=== PATIENT | male | born 1935 | race Caucasian/White ===

== ENCOUNTER 2016-08-26 08:30 | Observation (INO) | payer BC ==
[2016-06-19 09:03] VITALS: BMI 27.0
--- NOTE | 2016-06-19 09:43 | PAT Medication Instructions ---
Service Date June 19, 2016. Current Home Medication List Ascorbic Acid (Vitamin C), 1 T PO QAM Aspirin (Aspirin), 1 T PO HS Atorvastatin (Lipitor), 40 MG PO QAM Carvedilol (Coreg), 3.125 MG PO BID Cholecalciferol (Vitamin D3), 1 T PO QAM Clopidogrel (Plavix), 75 MG PO QAM Diltiazem Hcl Coated Beads (Cardizem Cd), 1 CAP PO QAM Finasteride (Proscar), 5 MG PO QAM Hydrochlorothiazide (Hctz), 25 MG PO QAM Insulin Human Lispro (Insulin Humalog Pump ), 1 EA N/A UD Lisinopril (Zestril), 40 MG PO QAM Nitroglycerin (Nitrostat), 0.4 MG UT PRN Ocuvite Preservision (Ocuvite Preservision), 1 TAB PO BID [place]-3 Fatty Acids ([place] 3), 1 CAP PO BID Pantoprazole (Protonix), 40 MG PO QPM Tamsulosin HCl (Tamsulosin HCl), 1 CAP PO QAM Medication Instructions For Your Scheduled Surgery Insulin Human Lispro (Insulin Humalog Pump ), 1 EA N/A UD (set insulin pump at basal rate after midnight prior to surgery. Do not bolus) Nitroglycerin (Nitrostat), 0.4 MG UT PRN (if needed) - Hold the following medications starting today 06/19/16: [place]-3 Fatty Acids ([place] 3), 1 CAP PO BID - Hold the following medications the morning of surgery: Ocuvite Preservision (Ocuvite Preservision), 1 TAB PO BID Lisinopril (Zestril), 40 MG PO QAM Hydrochlorothiazide (Hctz), 25 MG PO QAM Cholecalciferol (Vitamin D3), 1 T PO QAM Ascorbic Acid (Vitamin C), 1 T PO QAM - Take the following medications the morning of surgery with a sip of water: Tamsulosin HCl (Tamsulosin HCl), 1 CAP PO QAM Diltiazem Hcl Coated Beads (Cardizem Cd), 1 CAP PO QAM Finasteride (Proscar), 5 MG PO QAM Clopidogrel (Plavix), 75 MG PO QAM (per cardio and surgeon instructions) Carvedilol (Coreg), 3.125 MG PO BID Atorvastatin (Lipitor), 40 MG PO QAM - Take the following medications as scheduled the night before surgery: Pantoprazole (Protonix), 40 MG PO QPM Ocuvite Preservision (Ocuvite Preservision), 1 TAB PO BID Carvedilol (Coreg), 3.125 MG PO BID Aspirin (Aspirin), 1 T PO HS (per cardio and surgeon instructions) If you have any questions please call us at [phone] or [phone] ( [place]) or [phone]
[2016-06-19 10:19] LABS: BASO % 0.8 %; BASO ABS # 0.05 K/uL (0-0.2); COMPLETE YES; EOS % 4.5 %; HEMATOCRIT 39.1 % (42-52); IG% 0.2 %; LYMPH % 17.1 %; LYMPH ABS # 1.07 K/uL (1.2-3.4); MEAN CELL VOLUME 87.1 fL (80-100); MEAN CORPUSCULAR HEMOGLOBIN 27.8 pg (25-34); MEAN PLATELET VOLUME 9.7 fL (7.4-10.4); NEUT % 69.4 %; PLATELET COUNT 272 K/uL (130-400); RED BLOOD COUNT 4.49 M/uL (4.7-6.1); WHITE BLOOD COUNT 6.24 K/uL (4.8-10.8)
[2016-06-19 10:23] LABS: MANUAL MICROSCOPIC REQUIRED? NO; REVIEW REQ? NO; URINE APPEARANCE CLEAR (CLEAR); URINE BILIRUBIN NEG (NEG); URINE COLOR YELLOW; URINE NITRITE NEG (NEG); UROBILINOGEN NEG (NEG)
--- NOTE | 2016-06-19 10:30 | DIAGNOSTIC IMAGING REPORT ---
CHEST PREADMISSION(PA/LAT) HISTORY: Preop. COMPARISON: Chest 11/01/2012. FINDINGS: No pleural effusions. No pneumothorax. The heart is borderline enlarged. This remains unchanged. Moderate to large hiatus hernia remain stable. Left subclavian Port-A-Cath terminates in the distal SVC. No new focal lung consolidations to suggest pneumonia. No evidence for pulmonary edema. Lumbar spinal posterior fusion is noted. IMPRESSION: No change. No acute process within the chest. Hiatal hernia. Electronically signed by: Maco Travis M.D. 06/19/2016 10:29 AM Dictated Date/Time: 06/19/2016 10:27 AM
[2016-06-19 10:34] LABS: BUN/CREATININE RATIO 19.1 (10-20); CREATININE 0.85 mg/dl (0.60-1.40)
[2016-06-19 10:35] LABS: CALCIUM 8.9 mg/dl (8.5-10.1); POTASSIUM 4.3 mmol/L (3.5-5.1)
[2016-08-11 13:22] VITALS: BMI 28.0
--- NOTE | 2016-08-11 13:56 | PAT Medication Instructions ---
Service Date Aug 11, 2016. Current Home Medication List Ascorbic Acid (Vitamin C), 1 T PO QAM Ascorbic Acid (Vitamin C), 1 TAB PO QAM Aspirin (Aspirin), 1 T PO HS Atorvastatin (Lipitor), 40 MG PO QPM Carvedilol (Coreg), 3.125 MG PO BID Cholecalciferol (Vitamin D3), 1 T PO QAM Cholecalciferol (Vitamin D3), 1 TAB PO QAM Clopidogrel (Plavix), 75 MG PO QAM Diltiazem Hcl Coated Beads (Cardizem Cd), 1 CAP PO QAM Finasteride (Proscar), 5 MG PO QAM Fish Oil ([place]-3), 1 CAP PO QAM Hydrochlorothiazide (Hctz), 25 MG PO QAM Insulin Human Lispro (Insulin Humalog Pump ), 1 EA N/A UD Lisinopril (Zestril), 40 MG PO QAM Nitroglycerin (Nitrostat), 0.4 MG UT PRN Ocuvite Preservision (Ocuvite Preservision), 1 TAB PO BID Pantoprazole (Protonix), 40 MG PO QAM Tamsulosin HCl (Tamsulosin HCl), 1 CAP PO QPM Medication Instructions For Your Scheduled Surgery - Check with surgeon/vp of technology for instructions: Clopidogrel (Plavix), 75 MG PO QAM Aspirin (Aspirin), 1 T PO HS Hold the following medications 2 weeks prior to surgery: Fish Oil ([place]-3), 1 CAP PO QAM - Hold the following medications the morning of surgery: Ascorbic Acid (Vitamin C), 1 T PO QAM Ascorbic Acid (Vitamin C), 1 TAB PO QAM Ocuvite Preservision (Ocuvite Preservision), 1 TAB PO BID Lisinopril (Zestril), 40 MG PO QAM Hydrochlorothiazide (Hctz), 25 MG PO QAM Finasteride (Proscar), 5 MG PO QAM Cholecalciferol (Vitamin D3), 1 T PO QAM Cholecalciferol (Vitamin D3), 1 TAB PO QAM - Take the following medications the morning of surgery with a sip of water: Pantoprazole (Protonix), 40 MG PO QAM Nitroglycerin (Nitrostat), 0.4 MG UT PRN Diltiazem Hcl Coated Beads (Cardizem Cd), 1 CAP PO QAM Carvedilol (Coreg), 3.125 MG PO BID - Take the following medications as scheduled the night before surgery: Tamsulosin HCl (Tamsulosin HCl), 1 CAP PO QPM Ocuvite Preservision (Ocuvite Preservision), 1 TAB PO BID Nitroglycerin (Nitrostat), 0.4 MG UT PRN Carvedilol (Coreg), 3.125 MG PO BID Atorvastatin (Lipitor), 40 MG PO QPM - For Insulin Dependent Diabetic patients: Test blood sugar A.M. of surgery. - Continue basal setting of Insulin Human Lispro If you have any questions please call us at [phone] or [phone] or [phone]
[2016-08-11 14:33] LABS: BASO % 1.3 %; BASO ABS # 0.08 K/uL (0-0.2); COMPLETE YES; EOS % 9.3 %; HEMATOCRIT 38.9 % (42-52); IG% 0.2 %; LYMPH % 20.8 %; LYMPH ABS # 1.28 K/uL (1.2-3.4); MEAN CORPUSCULAR HEMOGLOBIN 29.2 pg (25-34); MEAN CORPUSCULAR HGB CONC 33.2 g/dl (32-36); MEAN PLATELET VOLUME 9.8 fL (7.4-10.4); NEUT % 56.4 %; PLATELET COUNT 312 K/uL (130-400); RED BLOOD COUNT 4.42 M/uL (4.7-6.1); WHITE BLOOD COUNT 6.15 K/uL (4.8-10.8)
[2016-08-11 14:41] LABS: URINE APPEARANCE CLEAR (CLEAR); URINE BILIRUBIN NEG (NEG); URINE COLOR YELLOW; URINE NITRITE NEG (NEG); URINE PH 7.5 (4.5-7.5); URINE SPECIFIC GRAVITY 1.015 (1.000-1.030); UROBILINOGEN NEG (NEG)
[2016-08-11 14:43] LABS: MANUAL MICROSCOPIC REQUIRED? NO; REVIEW REQ? NO
[2016-08-11 14:47] LABS: BUN/CREATININE RATIO 19.9 (10-20); CALCIUM 8.7 mg/dl (8.5-10.1); CREATININE 0.71 mg/dl (0.60-1.40); POTASSIUM 3.5 mmol/L (3.5-5.1)
[~2016-08-26] VITALS: Ht 167.6 cm; Wt 78.6 kg
[2016-08-26] VITALS (10 sets, daily range): BP systolic 131–175; BP diastolic 68–82; PULSE 58–83; TEMP 36.3–37; O2SAT 93–99; Ht 167.6 cm; Wt 78.6 kg
[~2016-08-26 08:30] MED LIST: ASCO-63 PO; ASCO10003 PO; ASPI81TA82 PO; ATOR-24 PO; CARV3.122 PO; CHOL1000 PO; CIPROFLOXACIN / D5W 400 MG IV SCH; CLOP1TAB15 PO; DILT360C17 PO; FINA5TAB PO; FLM4 PO; HYDR25TA4 PO; INSPMPHMLG; LACTATED RINGER'S 1000ML 1,000 ML IV SCH; LISI40TA PO; MULT-190 PO; NITR0.4S UT; OMEG10007 PO; PANT1TAB48 PO
--- NOTE | 2016-08-26 09:41 | History & Physical Bridge Note ---
H&P Re-Evaluation Bridge Note: I have examined the patient, reviewed the History & Physical and in the interval since the performance of the History & Physical I have noted the following changes of clinical significance: No changes noted
[2016-08-26] MEDS ORDERED: PROPOFOL IV EMULSION 10 MG/ML 20 ML VIAL IV ONE (09:45)
[2016-08-26] MEDS ORDERED: LIDOCAINE HCL 2% 2 ML VIAL (20MG/ML) ONE (09:45)
[2016-08-26] MEDS ORDERED: ROCURONIUM BROMIDE 10 MG/ML 5 ML VIAL ONE (09:45)
[2016-08-26] MEDS ORDERED: FENTANYL CITRATE INJ 50 MCG/1 ML 2 ML VIAL ONE ×2 (09:45→10:31)
[2016-08-26] MEDS ORDERED: ONDANSETRON INJ 2 MG/ML 2 ML VIAL ONE (09:45)
[2016-08-26] MEDS ORDERED: ETOMIDATE 2 MG/ML 20 ML VIAL IV ONE (09:57)
[2016-08-26] MEDS ORDERED: EpHEDrine SULFATE INJ 50 MG/ML AMP IV PRN ×2 (11:15)
[2016-08-26] MEDS ORDERED: ONDANSETRON INJ 2 MG/ML 2 ML VIAL IV PRN ×3 (11:15→11:30)
[2016-08-26] MEDS ORDERED: PHENYLEPHRINE 100MCG/ML 5ML SYR IV PRN ×2 (11:15)
[2016-08-26] MEDS ORDERED: ATROPINE SULFATE 0.1 MG/ML 5ML SYR IV PRN ×2 (11:15)
[2016-08-26] MEDS ORDERED: HYDROmorphone INJ 2 MG/ML SYR/VIAL IV PRN ×2 (11:15)
[2016-08-26] MEDS ORDERED: ACETAMINOPHEN 325 MG TAB PO PRN (11:30)
[2016-08-26] MEDS ORDERED: ACETAMINOPHEN/CODEINE 300/30MG TAB PO PRN (11:30)
[2016-08-26] MEDS ORDERED: NITROGLYCERIN 0.4 MG SL PER TAB CHARGE UT PRN (11:30)
--- NOTE | 2016-08-26 11:52 | [facility] Operative Report ---
Operative Report Operative Date Aug 26, 2016. Pre-Operative Diagnosis Benign prostatic hyperplasia with urinary obstruction Post-Operative Diagnosis same Procedure(s) Performed Button Transurethral Resection Prostate Surgeon Dr. Gutiérrez Manager Maintenance Surgeon(s) none Estimated Blood Loss 5 ML Findings Bilobar hypertrophy Specimens none per surgeon Drains 22 Stateless Sanchez catheter Anesthesia Gen. Complication(s) None Disposition Recovery Room / PACU (stable) Indications Urinary retention Description of Procedure Isai Camacho was identified in the preoperative holding area, appropriate informed consents were reviewed and completed and the patient was transported to the operating suite. Upon arrival he received appropriate preoperative antibiotics in the form of ciprofloxacin. Adequate general anesthesia was achieved and he was placed in dorsal lithotomy position where he was sterilely prepped and draped in standard fashion. Beginning the case a past 24 Stateless resectoscope visual obturator and 30 lens. He has a malleable prosthesis in place however this was easily manipulated to allow passage of the scope. He was noted to have no stricture disease but he does have significant bilobar hypertrophy and a high bladder neck. Ureteral orifices were easily identified in orthotopic position several centimeters in the bladder neck. Many aspects the bladder were inspected and no mucosal disease or tumors. Then passed a button electrode and performed a vaporization of the lateral lobes of the prostate as well as the bladder neck. This dropped the bladder neck appropriately open the passage through the prostate without difficulty. Excellent hemostasis at the conclusion of my resection. I left the bladder full and removed the equipment, with gentle suprapubic pressure adnexal urinary stream. Placed a 22 Stateless Sanchez catheter without difficulty and the case was concluded. Patient was extended and taken to the PACU in stable condition. I attest to the content of the Intraoperative Record and any orders documented therein. Any exceptions are noted below.
--- NOTE | 2016-08-26 11:59 | Anesthesiology Progress Note ---
Anesthesia Post Op Note Date & Time Aug 26, 2016 at 11:59 Vital Signs Pain Intensity: 0 Vital Signs Past 12 Hours Date Time Temp Pulse Resp B/P (MAP) Pulse Ox O2 Delivery O2 Flow Rate FiO2 08/26/16 11:45 36.7 63 16 155/79 99 Nasal Cannula 2 08/26/16 11:35 62 16 167/82 99 Oxymask 5 08/26/16 11:25 65 16 166/83 99 Oxymask 10 08/26/16 11:16 36.6 62 16 158/81 98 Oxymask 10 08/26/16 08:49 36.6 64 18 164/82 (109) 96 Room Air Notes Mental Status: alert / awake / arousable, participated in evaluation Pt Amnestic to Procedure: Yes Nausea / Vomiting: adequately controlled Pain: adequately controlled Airway Patency, RR, SpO2: stable & adequate BP & HR: stable & adequate Hydration State: stable & adequate Anesthetic Complications: no major complications apparent
[2016-08-26] MEDS ORDERED: GLUCAGON FOR INJ 1 MG VIAL SQ PRN (13:15)
[2016-08-26] MEDS ORDERED: GLUCOSE 40% GEL 15 GM TUBE PO PRN (13:15)
[2016-08-26] MEDS ORDERED: INSULIN HUMAN LISPRO (humaLOG) 100 UNITS/ML VIAL SC PRN (13:15)
[2016-08-26] MEDS ORDERED: GLUCOSE 10 TABS/TUBE PO PRN (13:15)
[2016-08-26] MEDS ORDERED: DEXTROSE 50% 50 ML SYR IV PRN (13:15)
[2016-08-26] MEDS: LACTATED RINGER'S 1000ML 1,000 ML IV SCH ×3 (13:25→19:15)
[2016-08-26] MEDS ORDERED: IV FLUIDS COMPLETED PRN (14:00)
[2016-08-26] MEDS ORDERED: ATORVASTATIN 40 MG TAB PO SCH (21:00)
[2016-08-26] MEDS ORDERED: ASPIRIN 81 MG ECTAB PO SCH (21:00)
[2016-08-26] MEDS: CARVEDILOL 3.125 MG TAB PO SCH (21:39)
[2016-08-26] MEDS: CEROVITE ADV FORMULA TAB PO SCH (21:39)
[2016-08-26] MEDS: CIPROFLOXACIN / D5W 400 MG in PREMIXED IN D5W 200 ML IV SCH (21:39)
[2016-08-27] MEDS: LACTATED RINGER'S 1000ML 1,000 ML IV SCH ×2 (02:27→11:16)
[2016-08-27 03:30] VITALS: BP 138/77; PULSE 65; TEMP 36.8; O2SAT 95
[2016-08-27 07:45] VITALS: BP 142/78; PULSE 75; TEMP 36.9; O2SAT 93
--- NOTE | 2016-08-27 07:54 | Progress Note ---
Subjective Date of Service: Aug 27, 2016. Subjective Pt evaluation today including: conversation w/ patient, chart review, lab review Voiding: hazel catheter in place (patent, draining light pink urine) 80 yo male s/p TURP. Pt reports he feels well this morning. Denies pain. Hazel draining light pink urine in drainage bag. Clear, yellow in tubing. Labs stable. Review of Systems Constitutional: No fever, No chills Respiratory: No shortness of breath Cardiac: No chest pain Abdomen: No pain, No nausea, No vomiting Male : + hematuria Heme: No abnormal bleeding/bruising Objective Vital Signs Date Time Temp Pulse Resp B/P (MAP) Pulse Ox O2 Delivery O2 Flow Rate FiO2 08/27/16 07:45 36.9 75 15 142/78 (99) 93 Room Air 08/27/16 03:30 36.8 65 18 138/77 (97) 95 Room Air 08/26/16 23:22 37.0 81 18 137/71 (93) 94 Room Air 08/26/16 23:15 Room Air 08/26/16 21:40 83 144/73 (96) 08/26/16 20:00 36.5 76 16 138/68 (91) 93 Room Air 08/26/16 16:15 Nasal Cannula 2.0 08/26/16 15:00 36.4 68 16 135/74 (94) 97 Nasal Cannula 2.0 08/26/16 13:54 74 19 131/70 (90) 97 Nasal Cannula 08/26/16 13:06 36.3 58 19 150/75 (100) 97 Room Air 08/26/16 12:30 36.3 63 15 165/81 (109) 97 Nasal Cannula 2.0 08/26/16 12:18 36.4 70 15 175/73 (107) 97 Nasal Cannula 2.0 08/26/16 12:00 97 Nasal Cannula 2.0 08/26/16 12:00 99 Nasal Cannula 2.0 08/26/16 11:55 62 16 151/83 99 Nasal Cannula 2 08/26/16 11:45 36.7 63 16 155/79 99 Nasal Cannula 2 08/26/16 11:35 62 16 167/82 99 Oxymask 5 08/26/16 11:25 65 16 166/83 99 Oxymask 10 7/18/17 11:16 36.6 62 16 158/81 98 Oxymask 10 08/26/16 08:49 36.6 64 18 164/82 (109) 96 Room Air Physical Exam General Appearance: no apparent distress Eyes: normal inspection ENT: hearing grossly normal Neck: no JVD Respiratory/Chest: no respiratory distress, no accessory muscle use Cardiovascular: no JVD Extremities: normal inspection Neurologic/Psychiatric: alert, normal mood/affect, oriented x 3 Skin: normal color Laboratory Results Last 24 Hours Test 08/26/16 08:55 08/26/16 11:22 08/26/16 12:18 08/26/16 17:15 Bedside Glucose 216 mg/dl 198 mg/dl 201 mg/dl 196 mg/dl Test 08/26/16 20:51 Bedside Glucose 121 mg/dl Assessment and Plan POD #1 s/p button TURP. AFVSS. Pt doing well post-op. Will attempt a trial of void this morning. Encourage use of IS. Encourage ambulation to hallway. Pt to be discharged home today after he voids and ambulates to hallway. F/u with Dr. Gutiérrez as scheduled. Discharge planning: home
[2016-08-27] MEDS ORDERED: DOCU-94 PO (08:04)
[2016-08-27] MEDS ORDERED: ACET-749 PO (08:04)
--- NOTE | 2016-08-27 08:04 | Anesthesiology Progress Note ---
Anesthesia Post Op Note Date & Time Aug 27, 2016 at 08:04 Vital Signs Pain Intensity: 0.0 Vital Signs Past 12 Hours Date Time Temp Pulse Resp B/P (MAP) Pulse Ox O2 Delivery O2 Flow Rate FiO2 08/27/16 07:45 36.9 75 15 142/78 (99) 93 Room Air 08/27/16 03:30 36.8 65 18 138/77 (97) 95 Room Air 08/26/16 23:22 37.0 81 18 137/71 (93) 94 Room Air 08/26/16 23:15 Room Air 08/26/16 21:40 83 144/73 (96) Notes Mental Status: alert / awake / arousable, participated in evaluation Pt Amnestic to Procedure: Yes Nausea / Vomiting: adequately controlled Pain: adequately controlled Airway Patency, RR, SpO2: stable & adequate BP & HR: stable & adequate Hydration State: stable & adequate Anesthetic Complications: no major complications apparent
--- NOTE | 2016-08-27 08:09 | Discharge Instructions ---
Discharge Instructions Date of Service Aug 27, 2016. Admission Reason for Admission: Benign Prostatic Hyperplasia Discharge Discharge Diagnosis / Problem: Benign Protatic Hyperplasia Discharge Goals Goal(s): Decrease discomfort, Increase independence, Improve disease control, Therapeutic intervention Activity Recommendations Activity Limitations: per Instructions/Follow-up section Lifting Limitations: no more than 25 pounds (x 1 week) Exercise/Sports Limitations: rest today, gradually increase as tolerated ( Light activity x 1 week. ) May Resume Sexual Activity: after follow-up appointment Shower/Bathe: no limitations Driving or Machine Use: resume 3 days after discharge 1. You may resume taking your Plavix on Thursday, August 30. 2. Continue Aspirin. 3. You may resume taking fish oil in 1 week if urine remains clear. 4. Follow-up with Dr. Gutiérrez as scheduled. Please call our office at if you need to reschedule for any reason. . Current Hospital Diet Hospital Diet(s): Diabetes Type 1 Diet Discharge Diet Recommended Diet: Diabetes Type 2 Diet Procedures Procedures Performed: Button Transurethral Resection Prostate Pending Studies Studies pending at discharge: no Medical Emergencies . Who to Call and When: Medical Emergencies: If at any time you feel your situation is an emergency, please call 911 immediately. . Non-Emergent Contact Non-Emergency issues call your: Urologist Call Non-Emergent contact if: temperature is above 101.5, your pain is not controlled, your pain is worsening, your pain is unusual for you, your pain is concerning you, you have any medication questions . . "Provider Documentation" section prepared by Rosa Aguirre. . VTE Core Measure Inpt VTE Proph given/why not?: SCD's [place] Drug Monitoring Program Search Results: patient reviewed within database, no issues identified
[2016-08-27] MEDS: CEROVITE ADV FORMULA TAB PO SCH (08:58)
[2016-08-27 08:59] VITALS: BP 112/64; PULSE 82
[2016-08-27] MEDS: CARVEDILOL 3.125 MG TAB PO SCH (08:59)
[2016-08-27] MEDS ORDERED: LISINOPRIL 40 MG TAB PO SCH (09:00)
[2016-08-27] MEDS ORDERED: HYDROCHLOROTHIAZIDE 25 MG TAB PO SCH (09:00)
[2016-08-27] MEDS ORDERED: FINASTERIDE 5 MG TAB PO SCH (09:00)
[2016-08-27] MEDS ORDERED: PANTOprazole SOD 40 MG TAB PO SCH (09:00)
[2016-08-27] MEDS ORDERED: DILTIAZEM HCL 180 MG CAPCR PO SCH (09:00)
[2016-08-27 09:35] VITALS: O2SAT 93
[2016-08-27] MEDS: CIPROFLOXACIN / D5W 400 MG in PREMIXED IN D5W 200 ML IV SCH (10:02)
[2016-08-27 11:04] VITALS: BP 112/64; PULSE 82; TEMP 36.9; O2SAT 93
[2016-08-27 11:25] VITALS: BP 124/74; PULSE 77; TEMP 36.6; O2SAT 95
--- NOTE | 2016-09-04 15:41 | Discharge Summary ---
Discharge Summary Date of Service Sep 04, 2016. Discharge Summary Admission Date: Aug 26, 2016 at 11:20 Discharge Date: Aug 27, 2016 Discharge Disposition: Home Principal Diagnosis: urinary retention Procedures: TURP Medication Reconciliation New Medications: Docusate Sodium (Colace) 100 Mg Cap 1 CAP PO BID PRN for Constipation for 30 Days, #60 CAP 0 Refills Acetaminophen/Codeine (Tylenol W/Codeine #3) 300 Mg/30 Mg Tab 1 TAB PO Q6H PRN for moderate pain (pain scale 4-6), #20 TAB 0 Refills Continued Medications: Ascorbic Acid (Vitamin C) 500 Mg Tab 1 TAB PO QAM Ascorbic Acid (Vitamin C) 1,000 Mg Tab 1 TAB PO QAM Aspirin (Aspirin) 81 Mg Tab 1 TAB PO HS Atorvastatin (Lipitor) 40 Mg Tab 40 MG PO QPM, TAB Carvedilol (Coreg) 3.125 Mg Tab 3.125 MG PO BID, TAB Cholecalciferol (Vitamin D3) 1,000 Unit Tab 2000 UNITS PO DAILY Diltiazem Hcl Coated Beads (Cardizem Cd) 360 Mg Cap 1 CAP PO QAM Hydrochlorothiazide (Hctz) 25 Mg Tab 25 MG PO QAM, TAB Insulin Human Lispro (Insulin Humalog Pump ) Pump 1 EA N/A UD, EA Lisinopril (Zestril) 40 Mg Tab 40 MG PO QAM, TAB Nitroglycerin (Nitrostat) 0.4 Mg Sub 0.4 MG UT PRN, BTL Ocuvite Preservision (Ocuvite Preservision) 1 Tab Tab 1 TAB PO BID, TAB Pantoprazole (Protonix) 40 Mg Tab 40 MG PO QAM, #30 TAB Discontinued Medications: Clopidogrel (Plavix) 75 Mg Tab 75 MG PO QAM, TAB Finasteride (Proscar) 5 Mg Tab 5 MG PO QAM, TAB Fish Oil ([place]-3) 1 Ea Cap 1 CAP PO QAM, CAP Tamsulosin HCl (Tamsulosin HCl) 0.4 Mg Cap 1 CAP PO QPM Hospital Course Admitted for TURP, details as previously documented in the operative report. In summary, he tolerated the procedure extremely well. He was in stable condition overnight. He passed a voiding trial on POD#1 and was discharged in stable condition. Total time spent on discharge = This includes examination of the patient, discharge planning, medication reconciliation, and communication with other providers. Discharge Instructions Please see previously written discharge instructions
== END 2016-08-27 13:13 | disposition home or self-care (01) ==
LOC: C.ACU 08:30 → C.MSW 11:20 → ENRESERV 11:49
PROVIDERS: ADMIT Urology; ATTEND Urology
DX: N40.1 Benign prostatic hyperplasia with lower urinary tract symptoms (principal); N13.8 Other obstructive and reflux uropathy; I10 Essential (primary) hypertension; E11.9 Type 2 diabetes mellitus without complications; Z79.82 Long term (current) use of aspirin; Z79.4 Long term (current) use of insulin; Z79.899 Other long term (current) drug therapy